=== PATIENT | male | born 1950 | race Asian ===

== ENCOUNTER → 2023-11-21 | Outpatient (CLI) | payer MEDICARE, OTHER ==
[~2023-11-21] VITALS: Ht 175.3 cm; Wt 77.0 kg
[~2023-11-21] MED LIST: ASPI-1444 PO; ATOR20TA PO; EMPA10TA3 PO; LORA10TA7 PO; METO25 PO; SITA1TAB6 PO; TELM20 PO
[2023-11-21 15:36] VITALS: BP 135/64; PULSE 80; RESP 20; TEMP 98.5; O2SAT 98
== END | disposition home or self-care (01) ==
LOC: EDSTATUS 15:15 → SRCNTR 15:17
PROVIDERS: ATTEND Internal Medicine
DX: R01.1 Cardiac murmur, unspecified (principal); R07.89 Other chest pain; I10 Essential (primary) hypertension; E11.9 Type 2 diabetes mellitus without complications; E78.5 Hyperlipidemia, unspecified; G47.33 Obstructive sleep apnea (adult) (pediatric)
CPT/HCPCS: G0463

== ENCOUNTER → 2023-11-27 | Outpatient (CLI) | payer MEDICARE, OTHER | END | disposition home or self-care (01) | LOC: RADPV 10:03 | PROVIDERS: ATTEND Internal Medicine | DX: I35.0 Nonrheumatic aortic (valve) stenosis (principal); I34.81 Nonrheumatic mitral (valve) annulus calcification; I51.7 Cardiomegaly; R01.1 Cardiac murmur, unspecified | CPT/HCPCS: 93306 ==

== ENCOUNTER → 2024-01-16 | Outpatient (CLI) | payer MEDICARE, OTHER | END | disposition home or self-care (01) | LOC: SRCNTR 10:06 | PROVIDERS: ATTEND Internal Medicine | DX: I35.0 Nonrheumatic aortic (valve) stenosis (principal); G47.33 Obstructive sleep apnea (adult) (pediatric); I10 Essential (primary) hypertension; E11.9 Type 2 diabetes mellitus without complications; E78.5 Hyperlipidemia, unspecified; Z79.899 Other long term (current) drug therapy; Z88.8 Allergy status to other drugs, medicaments and biological substances | CPT/HCPCS: Q3014 ==